=== PATIENT | male | born 1960 | race Caucasian/White ===

== ENCOUNTER 2020-09-04 16:35 | Emergency (ER) | payer SELFPAY ==
[~2020-09-04] VITALS: Ht 180.3 cm; Wt 88.6 kg
[~2020-09-04 16:35] MED LIST: CHLORTHALID25 MG PO
[2020-09-04 17:30] VITALS: BP 132/88
== END 2020-09-04 18:18 | disposition left against medical advice (07) | DRG 951 ==
LOC: ED 16:35 → LWOBS 18:17
DX: Z53.21 Procedure and treatment not carried out due to patient leaving prior to being seen by health care provider (principal)